=== PATIENT | female | born 1975 | race African-American/Black ===

== ENCOUNTER 2022-02-07 00:47 | Emergency (ER) | payer OTHER ==
[2022-02-07] MEDS ORDERED: Ketorolac Tromethamine 30 MG/ML VIAL ONE (01:37)
== END 2022-02-07 02:32 | disposition home or self-care (01) ==
LOC: CSHERS 00:47
DX: M54.31 Sciatica, right side (principal); F17.290 Nicotine dependence, other tobacco product, uncomplicated
CPT/HCPCS: 72170; 96372; J1885

== ENCOUNTER 2022-09-06 17:29 | Emergency (ER) | payer OTHER | END 2022-09-06 21:24 | disposition home or self-care (01) | LOC: CSHERS 17:29 | DX: M76.62 Achilles tendinitis, left leg (principal); M25.561 Pain in right knee; F17.290 Nicotine dependence, other tobacco product, uncomplicated ==